=== PATIENT | female | born 1960 | race Caucasian/White ===

== ENCOUNTER 2018-05-21 10:08 | Observation (INO) | payer BC ==
[2018-05-21] MEDS ORDERED: NA CHLORIDE 0.9% 1,000 ML ONE (10:36)
--- NOTE | 2018-05-21 10:41 | RAD REPORT ---
EXAM DESCRIPTION: CT - Head Brain Wo Cont - 05/21/2018 10:29 am CLINICAL HISTORY: DIZZINESS Headache, hypertension, diabetes. COMPARISON: No comparisons TECHNIQUE: All CT scans are performed using dose optimization technique as appropriate and may inclu de automated exposure control or mA/KV adjustment according to patient size. FINDINGS: No intracranial hemorrhage, hydrocephalus or extra-axial fluid collection.No areas of brai n edema or evidence of midline shift. Mucoperiosteal thickening affects sphenoid sinus and left maxillary antrum. The calvarium is intact. IMPRESSION: No acute intracranial abnormality.
[2018-05-21 10:42] LABS: Absolute Lymphocytes (CBC) 3.5 K/uL (0.7-4.9); Absolute Monocytes 0.6 K/uL (0.1-1.3); Absolute Neutrophil 5.2 K/uL (1.8-8.0); Basophils % 0.5 % (0-1.3); Eosinophils % 3.6 % (0-4.4); Hematocrit 39.4 % (36.0-45.0); Lymphocytes % 35.9 % (15.3-44.8); MCH 28.1 pg (27.0-35.0); MCV 82.3 fL (80-100); MPV 7.8 fL (7.6-11.3); Monocytes % 5.8 % (3.3-12.3); RBC Red Blood Cell Count 4.78 M/uL (3.86-4.86)
[2018-05-21 10:44] LABS: Protime INR 0.99
[2018-05-21 11:08] LABS: ALT/SGPT 37 U/L (12-78); AST/SGOT 21 U/L (15-37); Albumin 3.5 g/dL (3.4-5.0); Alkaline Phosphatase 132 U/L (45-117); BUN Blood Urea Nitrogen 10 mg/dL (7-18); Bicarbonate 31 mmol/L (21-32); Bilirubin Direct 0.1 mg/dL (0-0.2); Bilirubin Total 0.3 mg/dL (0.2-1.0); CKMB Creatine Kinase MB < 1.0 ng/mL (0.3-3.6); Creatine Phosphokinase 103 U/L (26-192); Glucose Level 182 mg/dL (74-106); Lipase 106 U/L (73-393); Magnesium 1.8 mg/dL (1.8-2.4); NT PRO-BNP 53 pg/mL (<125); Potassium 3.6 mmol/L (3.5-5.1); Protein, Total 7.6 g/dL (6.4-8.2); Sodium Level 138 mmol/L (136-145)
[2018-05-21 11:16] LABS: Urine Blood NEGATIVE (NEG); Urine Glucose NEGATIVE (NEG); Urine Protein NEGATIVE (NEG); Urine pH 6.5 (5.0-7.0)
[2018-05-21] MEDS ORDERED: ASPIRIN 81 MG CHEWABLE TABLET ONE (11:16)
[2018-05-21] MEDS ORDERED: CEFTRIAXONE/SWI 1gm 1 GM/10 ML SYR ONE (11:17)
[2018-05-21] MEDS ORDERED: ENOXAPARIN 100 MG/ML SYR SQ ONE (11:17)
--- NOTE | 2018-05-21 11:18 | RAD REPORT ---
EXAM DESCRIPTION: Joaquin Single View05/21/2018 10:56 am CLINICAL HISTORY: Chest pain COMPARISON: none FINDINGS: The lungs appear clear of acute infiltrate. The heart is normal size IMPRESSION: No acute abnormalities displayed
--- NOTE | 2018-05-21 11:39 | ER ---
Nurse's Notes [facility] Name: Elina Ramey Age: 58 yrs Sex: Female : 1960 Arrival Date: 05/21/2018 Time: 10:11 Bed 8 Private MD: Aubrey Kennedy Diagnosis: Chest pain, unspecified;Acute sinusitis;Type 2 diabetes mellitus;Essential (primary) hypertension Presentation: 05/21 10:17 Presenting complaint: Patient states: Neck pain and headache that started yesterday sg evening, reports this morning having nausea and dizziness, report CP that began this morning described as pressure and the nausea just getting worse. Transition of care: patient was not received from another setting of care. Onset of symptoms was May 21, 2018. Risk Assessment: Do you want to hurt yourself or someone else? Patient reports no desire to harm self or others. Initial Sepsis Screen: Does the patient have a suspected source of infection? No. Patient's initial sepsis screen is negative. Care prior to arrival: None. 10:17 Method Of Arrival: Ambulatory sg 10:17 Acuity: RAMY 3 sg 10:25 Initial Sepsis Screen: Does the patient meet any 2 criteria? No. Patient's initial ss sepsis screen is negative. Historical: - Allergies: 10:17 Metformin HCl; sg - Home Meds: 10:17 glipizide 10 mg Oral tab 1 tab once daily for Type 2 Diabetes Mellitus [Active]; Lantus sg 100 unit/mL Sub-Q soln for Type 2 Diabetes Mellitus [Active]; lisinopril 40 mg Oral tab 1 tab once daily [Active]; - PMHx: 10:17 Diabetes - NIDDM; Hypertension; Pancreatitis; sg - Immunization history:: Adult Immunizations up to date. - Social history:: Smoking status: Patient/guardian denies using tobacco. - Ebola Screening: : Patient negative for fever greater than or equal to 101.5 degrees Fahrenheit, and additional compatible Ebola Virus Disease symptoms Patient denies exposure to infectious person Patient denies travel to an Ebola-affected area in the 21 days before illness onset No symptoms or risks identified at this time. - Family history:: not pertinent. Screenin:22 Abuse screen: Denies threats or abuse. Denies injuries from another. Nutritional ss screening: No deficits noted. Tuberculosis screening: Never had TB. Fall Risk None identified. Assessment: 10:20 Reassessment: Pt c/o dizziness that is worse when opening eyes and moving head that ss began suddenly at 0930. Pt reports that she does not feel weak in any particular place, but she just feels dizzy and has a "weird pain" on the L lateral aspect of her chest. remains at bedside. GCS 15, respirations remain even and unlabored. Neuro: Level of Consciousness is awake, alert, obeys commands, Oriented to person, place, time, situation, Patient Financial Specialist are equal bilaterally Moves all extremities. Speech is normal, Facial symmetry appears normal, Pupils are PERRLA, Intact. Derm: Skin is pink, warm \\T\\ dry. normal. 10:25 Reassessment: Pt to CT at this time VIA stretcher. ss 10:35 General: Appears in no apparent distress. uncomfortable, well developed, Behavior is sv calm, cooperative, appropriate for age. Pain: Complains of pain in left lateral anterior chest Pain currently is 5 out of 10 on a pain scale. Quality of pain is described as pressure, Pain began this morning Is intermittent. Neuro: Level of Consciousness is awake, alert, obeys commands, Oriented to person, place, time, situation, Moves all extremities. Full function Gait is steady, Speech is normal, Reports dizziness. Cardiovascular: Reports shortness of breath, when she had the chest pressure earlier Heart tones S1 S2 present Capillary refill < 3 seconds is brisk in bilateral fingers Patient's skin is warm and dry. Pulses are 3+ in right radial artery and left radial artery Rhythm is sinus rhythm. Respiratory: Respiratory effort is even, unlabored, Respiratory pattern is regular, symmetrical, Breath sounds are clear bilaterally. GI: Abdomen is obese, Stools are reported to be normal. Reports nausea, vomiting, Patient currently denies diarrhea. Derm: Skin is pink, warm \\T\\ dry. 12:29 Reassessment: Patient appears in no apparent distress at this time. No changes from sv previously documented assessment. Patient and/or family updated on plan of care and expected duration. Pain level reassessed. Patient is alert, oriented x 3, equal unlabored respirations, skin warm/dry/pink. Echo at the bedside. 13:40 Reassessment: Spoke with Karina in inside lab and informed her that the next troponin is sv to be drawn at 1830. Vital Signs: 10:22 BP 173 / 78; Pulse 76; Resp 16; Temp 97.6(TE); Pulse Ox 98% on R/A; Weight 90.72 kg; ss Height 5 ft. 7 in. (170.18 cm); 11:02 BP 140 / 64; Pulse 75; Resp 12; Pulse Ox 97% ; sv 12:26 BP 148 / 71; Pulse 82; Resp 19; Pulse Ox 95% ; sv 13:50 BP 137 / 74; Pulse 73; Resp 16; Pulse Ox 99% ; sv 10:22 Body Mass Index 31.32 (90.72 kg, 170.18 cm) ss [place] Coma Score: 10:22 Eye Response: spontaneous(4). Verbal Response: oriented(5). Motor Response: obeys ss commands(6). Total: 15. ED Course: 10:11 Patient arrived in ED. sb2 10:11 Aubrey Kennedy MD is Private Physician. sb2 10:14 Sukhdeep Rios MD is Attending Physician. machelle 10:17 Arm band placed on. sg 10:18 Triage completed. sg 10:21 Inserted saline lock: 20 gauge in right antecubital area, using aseptic technique. ss Blood collected. Patient maintains SpO2 saturation greater than 95% on room air. 10:22 Patient has correct armband on for positive identification. Bed in low position. Call ss light in reach. Side rails up X 1. Adult w/ patient. debubblizer on. Pulse ox on. NIBP on. 10:[address] nj 10:29 CT completed. Patient tolerated procedure well. Patient moved back from CT. nj 10:29 CT Head Brain wo Cont In Process Unspecified. EDMS 10:32 Alicia Butler, ORTEGA is Primary Nurse. sv 10:45 Urine collected: clean catch specimen, clear. sv 10:52 X-ray completed. Portable x-ray completed in exam room. Patient tolerated procedure jb2 well. 10:54 XRAY Chest (1 view) In Process Unspecified. EDMS 10:56 ED physician to see patient. sv 11:37 Makeda Jorgensen MD is Hospitalizing Provider. machelle 13:40 No provider procedures requiring assistance completed. Patient admitted, IV remains in sv place. intact. Administered Medications: 10:35 Drug: NS 0.9% 1000 ml Route: IV; Rate: 125 ml/hr; Site: right antecubital; ss 13:58 Follow up: Response: No adverse reaction; IV Status: Infusion continued upon admission sv 11:28 Drug: Rocephin - (cefTRIAXone) 1 grams Route: IVPB; Infused Over: 30 mins; Site: right sv antecubital; 11:35 Follow up: Response: No adverse reaction; IV Status: Completed infusion; IV Intake: sv 10ml ; given IV per pharmacy instructions 11:29 Drug: Aspirin Chewable Tablet 324 mg Route: PO; sv 12:37 Follow up: Response: No adverse reaction sv 11:29 Drug: Lovenox 1 mg/kg Route: Sub-Q; Site: right lower abdomen; sv 12:36 Follow up: Response: No adverse reaction sv Point of Care Testing: Blood Glucose: 10:22 Blood Glucose: 173 mg/dL; ss Ranges: Intake: 11:35 IV: 10ml; Total: 10ml. sv Outcome: 11:38 Decision to Hospitalize by Provider. [facility] 13:48 Admitted to Tele accompanied by tech, family with patient, via stretcher, room 207, sv with chart, Report called to Agatha VIVAS 13:48 Condition: stable 13:48 Instructed on the need for admit. 13:58 Patient left the ED. sv Signatures: Dispatcher [employer] Alicia Gordon RN ORTEGA Mark Hazel RN Sukhdeep Weeks MD MD cha Buechter, Jesse jb2 Smirch, Shelby, RN RN ss Jordan, Nathan nj [place], [place] sb2 Corrections: (The following items were deleted from the chart) 10:29 10:22 BP 173 / 78; Pulse 76bpm; Resp 16bpm; Pulse Ox 98% RA; Temp 97.6F Temporal; 90.72 ss kg; Height 5 ft. 7 in.; BMI: 31.3; Pain 0/10; ss
--- NOTE | 2018-05-21 11:39 | EDPHYS ---
Physician Documentation [facility] Name: Elina Ramey Age: 58 yrs Sex: Female : 1960 Arrival Date: 05/21/2018 Time: 10:11 Bed 8 Private MD: Aubrey Kennedy ED Physician Sukhdeep Rios HPI: 05/21 11:05 This 58 yrs old Female presents to ER via Ambulatory with complaints of machelle Dizziness, Nausea, Chest Pressure. 11:05 The patient presents with dizziness. Onset: The symptoms/episode began/occurred this machelle morning, yesterday. Context: occurred at home. Modifying factors: The symptoms are alleviated by nothing, the symptoms are aggravated by nothing. Associated signs and symptoms: The patient has no apparent associated signs or symptoms. Severity of symptoms: At their worst the symptoms were mild in the emergency department the symptoms are unchanged. Patient's baseline: Neuro: alert and fully oriented. The patient has not experienced similar symptoms in the past. Historical: - Allergies: 10:17 Metformin HCl; sg - Home Meds: 10:17 glipizide 10 mg Oral tab 1 tab once daily for Type 2 Diabetes Mellitus [Active]; Lantus sg 100 unit/mL Sub-Q soln for Type 2 Diabetes Mellitus [Active]; lisinopril 40 mg Oral tab 1 tab once daily [Active]; - PMHx: 10:17 Diabetes - NIDDM; Hypertension; Pancreatitis; sg - Immunization history:: Adult Immunizations up to date. - Social history:: Smoking status: Patient/guardian denies using tobacco. - Ebola Screening: : Patient negative for fever greater than or equal to 101.5 degrees Fahrenheit, and additional compatible Ebola Virus Disease symptoms Patient denies exposure to infectious person Patient denies travel to an Ebola-affected area in the 21 days before illness onset No symptoms or risks identified at this time. - Family history:: not pertinent. ROS: 11:05 Constitutional: Negative for fever, chills, and weight loss, Eyes: Negative for injury, machelle pain, redness, and discharge, ENT: Negative for injury, pain, and discharge, Neck: Negative for injury, pain, and swelling, Respiratory: Negative for shortness of breath, cough, wheezing, and pleuritic chest pain, Abdomen/GI: Negative for abdominal pain, nausea, vomiting, diarrhea, and constipation, Back: Negative for injury and pain, : Negative for injury, bleeding, discharge, and swelling, MS/Extremity: Negative for injury and deformity, Skin: Negative for injury, rash, and discoloration, Neuro: Negative for headache, weakness, numbness, tingling, and seizure. 11:05 Cardiovascular: Positive for chest pain. 11:05 Neuro: Positive for dizziness. Exam: 11:05 Constitutional: This is a well developed, well nourished patient who is awake, alert, machelle and in no acute distress. Head/Face: Normocephalic, atraumatic. Eyes: Pupils equal round and reactive to light, extra-ocular motions intact. Lids and lashes normal. Conjunctiva and sclera are non-icteric and not injected. Cornea within normal limits. Periorbital areas with no swelling, redness, or edema. ENT: Nares patent. No nasal discharge, no septal abnormalities noted. Tympanic membranes are normal and external auditory canals are clear. Oropharynx with no redness, swelling, or masses, exudates, or evidence of obstruction, uvula midline. Mucous membranes moist. Neck: Trachea midline, no thyromegaly or masses palpated, and no cervical lymphadenopathy. Supple, full range of motion without nuchal rigidity, or vertebral point tenderness. No Meningismus. Chest/axilla: Normal chest wall appearance and motion. Nontender with no deformity. No lesions are appreciated. Cardiovascular: Regular rate and rhythm with a normal S1 and S2. No gallops, murmurs, or rubs. Normal PMI, no JVD. No pulse deficits. Respiratory: Lungs have equal breath sounds bilaterally, clear to auscultation and percussion. No rales, rhonchi or wheezes noted. No increased work of breathing, no retractions or nasal flaring. Abdomen/GI: Soft, non-tender, with normal bowel sounds. No distension or tympany. No guarding or rebound. No evidence of tenderness throughout. Back: No spinal tenderness. No costovertebral tenderness. Full range of motion. Female : Normal external genitalia. Skin: Warm, dry with normal turgor. Normal color with no rashes, no lesions, and no evidence of cellulitis. MS/ Extremity: Pulses equal, no cyanosis. Neurovascular intact. Full, normal range of motion. Neuro: Awake and alert, GCS 15, oriented to person, place, time, and situation. Cranial nerves II-XII grossly intact. Motor strength 5/5 in all extremities. Sensory grossly intact. Cerebellar exam normal. Normal gait. Psych: Awake, alert, with orientation to person, place and time. Behavior, mood, and affect are within normal limits. Vital Signs: 10:22 BP 173 / 78; Pulse 76; Resp 16; Temp 97.6(TE); Pulse Ox 98% on R/A; Weight 90.72 kg; ss Height 5 ft. 7 in. (170.18 cm); 11:02 BP 140 / 64; Pulse 75; Resp 12; Pulse Ox 97% ; sv 12:26 BP 148 / 71; Pulse 82; Resp 19; Pulse Ox 95% ; sv 13:50 BP 137 / 74; Pulse 73; Resp 16; Pulse Ox 99% ; sv 10:22 Body Mass Index 31.32 (90.72 kg, 170.18 cm) [place] Coma Score: 10:22 Eye Response: spontaneous(4). Verbal Response: oriented(5). Motor Response: obeys commands(6). Total: 15. MDM: 10:14 Patient medically screened. [facility] 11:08 Data reviewed: vital signs, nurses notes, lab test result(s), EKG, radiologic studies, [facility] CT scan, plain films. 05/21 10:20 Order name: Basic Metabolic Panel; Complete Time: 11: [facility] 05/21 10:20 Order name: CBC with Diff; Complete Time: 11: [facility] 05/21 10:20 Order name: Ckmb; Complete Time: : [facility] 05/21 10:20 Order name: CPK; Complete Time: 11: [facility] 05/21 10:20 Order name: LFT's; Complete Time: 11: [facility] 05/21 10:20 Order name: Magnesium; Complete Time: : [facility] 05/21 10:20 Order name: NT PRO-BNP; Complete Time: : [facility] 05/21 10:20 Order name: PT-INR; Complete Time: 11: [facility] 05/21 10:20 Order name: Ptt, Activated; Complete Time: 11: [facility] 05/21 10:20 Order name: Troponin (emerg Dept Use Only); Complete Time: 11: [facility] 05/21 10:20 Order name: Lipase; Complete Time: 11:14 [facility] 05/21 10:20 Order name: Urine Culture [facility] 05/21 10:55 Order name: Urine Dipstick--Ancillary (enter results); Complete Time: 11:35 05/21 11:03 Order name: D-Dimer; Complete Time: 12:08 [facility] 05/21 10:19 Order name: CT Head Brain wo Cont; Complete Time: 11:03 snw 05/21 10:20 Order name: XRAY Chest (1 view); Complete Time: 11:35 [facility] 05/21 10:20 Order name: EKG; Complete Time: 10:20 [facility] 05/21 10:20 Order name: Cardiac monitoring; Complete Time: 10:31 [facility] 05/21 10:20 Order name: EKG - Nurse/Tech; Complete Time: 10:32 [facility] 05/21 10:20 Order name: IV Saline Lock; Complete Time: 10:31 [facility] 05/21 10:20 Order name: Labs collected and sent; Complete Time: 10:31 [facility] 05/21 10:20 Order name: O2 Per Protocol; Complete Time: 10:31 [facility] 05/21 10:20 Order name: O2 Sat Monitoring; Complete Time: 10:31 [facility] 05/21 10:20 Order name: Urine Dipstick-Ancillary (obtain specimen); Complete Time: 11:30 [facility] 05/21 11:44 Order name: CONS Physician Consult EDMS 05/21 11:44 Order name: Echo with Doppler EDMS Administered Medications: 10:35 Drug: NS 0.9% 1000 ml Route: IV; Rate: 125 ml/hr; Site: right antecubital; ss 13:58 Follow up: Response: No adverse reaction; IV Status: Infusion continued upon admission sv 11:28 Drug: Rocephin - (cefTRIAXone) 1 grams Route: IVPB; Infused Over: 30 mins; Site: right sv antecubital; 11:35 Follow up: Response: No adverse reaction; IV Status: Completed infusion; IV Intake: sv 10ml ; given IV per pharmacy instructions 11:29 Drug: Aspirin Chewable Tablet 324 mg Route: PO; sv 12:37 Follow up: Response: No adverse reaction sv 11:29 Drug: Lovenox 1 mg/kg Route: Sub-Q; Site: right lower abdomen; sv 12:36 Follow up: Response: No adverse reaction sv Point of Care Testing: Blood Glucose: 10:22 Blood Glucose: 173 mg/dL; ss Ranges: Critical Glucose Levels:Adult <50 mg/dl or >400 mg/dl <40 mg/dl or >180 mg/dl Disposition: 05/21/18 11:38 Hospitalization ordered by Makeda Jorgensen for Observation. Preliminary diagnosis are Chest pain, unspecified, Acute sinusitis, Type 2 diabetes mellitus, Essential (primary) hypertension. - Bed requested for Telemetry/MedSurg (observation). - Status is Observation. sv - Condition is Stable. - Problem is new. - Symptoms have improved. UTI on Admission? No Signatures: Dispatcher [employer] EDAlicia Nix RN RN Amy Robin RN RN dw Gay, Steven, RN RN sg Anderson, Corey, MD MD cha Smirch, Shelby, RN RN ss Corrections: (The following items were deleted from the chart) 13:25 11:38 Hospitalization Ordered by Makeda Jorgensen MD for Observation. Preliminary diagnosis dw is Chest pain, unspecified; Acute sinusitis; Type 2 diabetes mellitus; Essential (primary) hypertension. Bed requested for Telemetry/MedSurg (observation). Status is Observation. Condition is Stable. Problem is new. Symptoms have improved. UTI on Admission? No. machelle 13:58 13:25 05/21/2018 11:38 Hospitalization Ordered by Makeda Jorgensen MD for Observation. sv Preliminary diagnosis is Chest pain, unspecified; Acute sinusitis; Type 2 diabetes mellitus; Essential (primary) hypertension. Bed requested for Telemetry/MedSurg (observation). Status is Observation. Condition is Stable. Problem is new. Symptoms have improved. UTI on Admission? No. dw
[2018-05-21] MEDS ORDERED: MORPHINE 4 MG/ML SYR IV PRN (12:40)
[2018-05-21] MEDS ORDERED: ALPRAZOLAM 0.25 MG TABLET PO PRN (12:40)
[2018-05-21] MEDS ORDERED: NITROGLYCERIN 0.4 MG/TAB SL PRN (12:40)
[2018-05-21] MEDS ORDERED: ZOLPIDEM TARTRATE 5 MG TABLET PO PRN (12:40)
[2018-05-21] MEDS ORDERED: ACETAMINOPHEN 500 MG TAB PO PRN (12:40)
--- NOTE | 2018-05-21 14:21 | ECHO ---
HEIGHT: 5 ft 7 in WEIGHT: 200 lb 0 oz DATE OF STUDY: 05/21/[address]: Sukhdeep Rios MD 2-DIMENSIONAL: YES M.MODE: YES DOPPLER: YES COLOR FLOW: YES TDS: NO PORTABLE: NO DEFINITY: NO BUBBLE STUDY: NO DIAGNOSIS: CHEST PAIN CARDIAC HISTORY: CATHERIZATION: NO SURGERY: NO PROSTHETIC VALVE: NO PACEMAKER: NO MEASUREMENTS (cm) DIASTOLIC (NORMALS) SYSTOLIC (NORMALS) IVSd 1.0 (0.6-1.2) LA Diam (1.9-4.0) LVEF 59% LVIDd 5.0 (3.5-5.7) LVIDs 3.4 (2.0-3.5) %FS 31% LVPWd 1.0 (0.6-1.2) Ao Diam 2.8 (2.0-3.7) 2 DIMENSIONAL ASSESSMENT: RIGHT ATRIUM: NORMAL LEFT ATRIUM: NORMAL RIGHT VENTRICLE: NORMAL LEFT VENTRICLE: NORMAL TRICUSPID VALVE: NORMAL MITRAL VALVE: NORMAL PULMONIC VALVE: NORMAL AORTIC VALVE: NORMAL PERICARDIAL EFFUSION: NONE AORTIC ROOT: NORMAL LEFT VENTRICULAR WALL MOTION: NORMAL. DOPPLER/COLOR FLOW: NORMAL. COMMENTS: NORMAL 2D ECHO WITH DOPPLER. TECHNOLOGIST: ALEX DAMIAN
--- NOTE | 2018-05-21 14:34 | EKG ---
Test Date: 2018-05-21 Test Time: 10:32:37 Hatch Boss: ADELSO MEASUREMENT RESULTS: Intervals: Rate: 72 TN: 156 QRSD: 82 QT: 414 QTc: 453 [place]: P: 33 TN: 156 QRS: 37 T: 44 INTERPRETIVE STATEMENTS: Normal sinus rhythm Normal ECG No previous ECG available for comparison Electronically Signed On 05-21-18 14:34:06 CDT by Feng Tracey
[2018-05-21] MEDS ORDERED: ALBUTEROL INHALER 60 PUFF/8 GM IH PRN (14:59)
[2018-05-21] MEDS ORDERED: D50W 25 GM/50 ML SYRINGE IV PRN (14:59)
[2018-05-21] MEDS ORDERED: GLUCAGON 1 MG/VIAL IM PRN (14:59)
[2018-05-21] MEDS: INSULIN -REGULAR HUMAN 50 UNIT/0.5 ML ML SQ SCH ×2 (16:30→21:00)
[2018-05-21] MEDS: MECLIZINE HCL 12.5 MG TAB PO PRN (16:56)
[2018-05-21] MEDS: PANTOPRAZOLE 40MG TABLET PO SCH (16:56)
--- NOTE | 2018-05-21 18:05 | HP ---
Date of Admission: 05/21/2018 Chief Complaint: Chest pain, dizziness. Code Status: Full. History Of Present Illness: The patient is a 58-year-old female with past medical history of diabete s mellitus type 2, hypertension, gastroesophageal reflux disease who was in her usual state of health until day of admission when the patient had sudden onset of dizziness which was described as the lizzy m spinning about her along with chest tightness, which was on the left side radiating over to the rig ht around her back. The patient also reported some nausea. Her symptoms were constant, moderate, an d progressively worsening. Denies any shortness of breath. The patient does report some subjective fever and sinus type symptoms several days ago which were improving, but the patient came into the ER for further evaluation. Upon arrival, her vital signs were stable. She was afebrile. Her workup r evealed troponin level less than 0.02. White count was normal. Her CT scan of the head was done whi ch showed no acute intracranial abnormalities. Did show some mucoperiosteal thickening effects, sphe noid sinus and left maxillary antrum. Calvarium is intact. Chest x-ray was negative. The patient w as then referred for admission for chest pain, rule out ACS. When the patient was seen in the ER she was awake, alert, oriented x3, in some mild distress. Chest pain has resolved at this time. Past Medical History: 1.Diabetes mellitus type 2, insulin requiring. 2.History of pancreatitis, iatrogenic after instrumentation. 3.Hypertension. 4.Arthritis. 5.Obesity. 6.Gastroesophageal reflux disease. Past Surgical History: Cholecystectomy, x1, surgery on the right foot with hardware, recen t biliary stent and retinal detachment with bubble placement and subsequent removal. Allergies: TO METFORMIN. Medications: List reviewed. Social History: The patient is . Works as a nurse. Independent in her activities of daily l iving. Does not smoke or drink. No illicit drug use. Family History: Diabetes mellitus runs in the mother side of the family. Review of Systems: An 11-point system reviewed, negative except as per HPI. Physical Examination: Vital Signs: Temperature 97.2, heart rate 72, blood pressure 173/78, respirations 16, O2 99% on room air. General: Awake, alert, oriented x3. Some mild distress. Obese female, ill-appearing, BMI 31.3. HEENT: Normocephalic, atraumatic. PERRLA. EOMI. Dry mucous membranes. Oropharynx is clear. Norm al dentition. Conjunctivae anicteric. Neck: Supple. No JVD. Trachea midline. CV: S1, S2. Regular rate and rhythm. Peripheral pulses present. Respiratory: Clear to auscultation bilaterally. No wheezing. No stridor. No use of accessory musc les. Gastrointestinal: Abdomen is soft, nontender, nondistended. Positive bowel sounds. Extremities: No clubbing, cyanosis, or edema. No calf tenderness. neuro: Cranial nerves 2 through 12 intact grossly. No focal neurological deficit. Speech is normal . Skin: No rashes. Normal skin turgor. Psych: mood is okay. Affect is full. Insight and judgment are good. Laboratory Data: UA is negative. Sodium 138, potassium 3.6, chloride 103, CO2 31, BUN 10, creatinin e 0.8, glucose 182, calcium 8.3, magnesium 1.8. Troponin less than 0.02. Albumin 3.5, INR 0.99. D- dimer 368. WBC 9.6, H and H 13.4, 39.4, platelets 316. CT scan of the head shows no acute intracran ial abnormality. Mucoperiosteal thickening effects, sphenoid sinus and left maxillary antrum. Kevin rium is intact. Chest x-ray shows no acute abnormality, personally reviewed. Echocardiogram, EF of 59%. Normal echo with Doppler. Assessment: A 58-year-old female with; 1.Chest pain, rule out acute coronary syndrome. Initial troponin and EKG are negative. We will sta rt on chest pain guidelines with beta andra, ARB, aspirin and statin. We will check lipid panel in a.m. Cardiology has been consulted. Echocardiogram does not show any wall motion abnormality. 2.Dizziness, vertigo. We will add meclizine as needed. We will have PT evaluation done and ambulat e. 3.Diabetes mellitus type 2, insulin requiring. We will resume home dose of insulin, place on slidin g scale insulin. 4.Essential hypertension, stable. We will resume home medications as appropriate. 5.Gastroesophageal reflux disease without esophagitis. 6.Gastrointestinal and deep venous thrombosis prophylaxis with PPI and Lovenox. 7.Obesity. Body mass index 31.3. Plan: Admit the patient to Med-Surg, place as observation. FLEX Voice ID: [id number]
[2018-05-21] MEDS ORDERED: ATORVASTATIN 40 MG TAB PO SCH (21:00)
[2018-05-21] MEDS: METOPROLOL TAR 25 MG TAB PO SCH (21:09)
[2018-05-21] MEDS: INSULIN 70/30 100 UNITS/ML SQ SCH (21:10)
[2018-05-22 06:44] LABS: Absolute Lymphocytes (CBC) 3.1 K/uL (0.7-4.9); Absolute Monocytes 0.7 K/uL (0.1-1.3); Absolute Neutrophil 4.5 K/uL (1.8-8.0); Basophils % 0.9 % (0-1.3); Eosinophils % 4.1 % (0-4.4); Hematocrit 37.1 % (36.0-45.0); MCH 28.1 pg (27.0-35.0); MCV 82.7 fL (80-100); MPV 8.1 fL (7.6-11.3); Monocytes % 7.5 % (3.3-12.3); Potassium 4.1 mmol/L (3.5-5.1); RBC Red Blood Cell Count 4.49 M/uL (3.86-4.86)
[2018-05-22] MEDS: INSULIN -REGULAR HUMAN 50 UNIT/0.5 ML ML SQ SCH (07:30)
[2018-05-22] MEDS: INSULIN 70/30 100 UNITS/ML SQ SCH (08:12)
[2018-05-22] MEDS: METOPROLOL TAR 25 MG TAB PO SCH (08:16)
[2018-05-22] MEDS: PANTOPRAZOLE 40MG TABLET PO SCH (08:16)
[2018-05-22] MEDS: MECLIZINE HCL 12.5 MG TAB PO PRN (08:17)
[2018-05-22] MEDS ORDERED: ASPIRIN EC 81 MG TAB PO SCH (09:00)
[2018-05-22] MEDS ORDERED: ENOXAPARIN 40 MG/0.4 ML SQ SCH (09:00)
[2018-05-22] MEDS ORDERED: LOSARTAN POTASSIUM 50 MG TABLET PO SCH (09:00)
[2018-05-22] MEDS ORDERED: HOME MED 1 EA UNK (Losartan Potassium [Cozaar] 100 MG) PO SCH (09:00)
[2018-05-22] MEDS ORDERED: hydroCHLOROthiazide 25 MG TAB PO SCH (09:00)
[2018-05-22] MEDS ORDERED: LISINOPRIL 10 MG TAB PO SCH (09:00)
[2018-05-22] MEDS ORDERED: MONTELUKAST 10 MG TAB PO SCH (09:00)
--- NOTE | 2018-05-22 10:52 | CON ---
Chief Complaint: She had a spell yesterday it lasted 5 minutes. She was not sure if her heart was b eating fast, but she felt a band around upper abdomen, lower part of her chest, felt lightheaded, a l ittle bit sweaty. It went away as quickly as it started. She has had other spells like that. She f eels her heart beating rapidly. It goes away in a few seconds, so this was by far the longest 1, but she has had numerous of these spells. She has underlying hypertension and diabetes. She has dyslip idemia. She takes meloxicam, montelukast, insulin, fish oil, Nexium, albuterol, losartan, hydrochlor othiazide. Allergies: SHE REPORTS A DRUG INTOLERANCE TO METFORMIN AND ALL OF THE STATINS MAKE HER GET JOINT KACEY NS. SHE HAS NOT BEEN ON A STATIN THAT SHE COULD TOLERATE. Physical Examination: Vital Signs: 5 feet 7 inches, 200 pounds. HEENT: Normal. Lungs: Clear. Carotids: No bruit. Heart: Normal. Abdomen: Soft. Extremities: Normal. Laboratory Data: Enzymes normal. EKG normal. Chest x-ray normal. Head CT normal. Impression: Mrs. Ramey has arrhythmia. I doubt if she has coronary heart disease. I will ask he r to do all outpatient testings. I think she could be discharged at this point and we will schedule echocardiogram, pharmacologic stress test, and event monitoring to be done through my office. Thank you very much for your kind referral of Mrs. Ramey. I will follow her with you. DARWIN/SAMMY Voice ID: [id number] Report ID: [id number]
--- NOTE | 2018-05-22 11:04 | DS ---
Date of Discharge: 05/22/2018 Consultants: Dr. Tracey with Cardiology. Discharge Diagnoses: 1. Chest pain, rule out acute coronary syndrome. 2. Dizziness, vertigo. 3. Diabetes mellitus type 2, insulin requiring with hyperglycemia. 4. Essential hypertension. 5. Gastroesophageal reflux disease without esophagitis. 6. Obesity, BMI 31. Hospital Course: The patient is a 58-year-old female, comes in with chest pain and dizziness. The patient was admitted to the hospital for rule out ACS. Cardiac enzymes were negative. EKG did not show any acute changes. The patient 's D-dimer was negative. She was seen by Dr. Tracey with Cardiology, recommended outpatient workup. Echocardiogram was done, which did show EF of 59 %, otherwise normal echo. The patient's dizziness resolved. Her vital signs were stable. She was afebrile. Her chest pain dissipated as well. The patient was then cleared for discharge. She was able to ambulate well without assist and did not have any dizziness. Diet: Diabetic. Activity: As tolerated. Medications: As per medication reconciliation list. Followup: Follow up with primary care physician in 2-3 days. Follow up with liaison engineer, Dr. Tracey in 1 week. Return to ER for worsening condition. Physical Examination: General: Awake, alert, oriented, no acute distress. Obese female. CV: S1, S2. No murmurs. Regular rate and rhythm. Peripheral pulses present. Respiratory: Clear to auscultation bilaterally. No wheezing. No stridor. Gastrointestinal: Abdomen is soft, nontender, nondistended. Positive bowel sounds. Extremities: No clubbing, cyanosis, edema. Neurologic: Nonfocal. SA/MODL Voice ID: [id number] Report ID: [id number]
== END 2018-05-22 11:17 | disposition home or self-care (01) ==
LOC: ER 10:08 → ERHOLD 11:40 → 2ND 13:48
PROVIDERS: ADMIT Family Medicine; ATTEND Family Medicine
DX: R07.9 Chest pain, unspecified (principal); R42 Dizziness and giddiness; E11.65 Type 2 diabetes mellitus with hyperglycemia; I10 Essential (primary) hypertension; K21.9 Gastro-esophageal reflux disease without esophagitis; E66.9 Obesity, unspecified; Z68.31 Body mass index [BMI] 31.0-31.9, adult; Z79.4 Long term (current) use of insulin; I49.9 Cardiac arrhythmia, unspecified; M19.90 Unspecified osteoarthritis, unspecified site; Z88.8 Allergy status to other drugs, medicaments and biological substances
CPT/HCPCS: 36415; 70450; 71045; 80048; 80061; 80076; 81003; 82550; 82553; 82962; 83690; 83735; 83880; 84484; 85025; 85379; 85610; 85730; 87086; 87088; 93005; 93306; 94760; 96361; 96372; 96374; 97163; 99285; G0378; J0696; J1650; J7030